=== PATIENT | female | born 1995 | race Caucasian/White ===

== ENCOUNTER 2018-01-30 01:27 | Emergency (ER) | payer OTHER ==
[~2018-01-30] VITALS: Ht 172.7 cm; Wt 86.2 kg
[2018-01-30 01:36] VITALS: BP_SYST 149
[2018-01-30 02:00] LABS: BILIRUBIN,URINE NEGATIVE (NEGATIVE); BLOOD, URINE 2+ (NEGATIVE); CLARITY/URINE CLEAR (CLEAR); COLOR,URINE YELLOW (YELLOW); GLUCOSE,URINE 3+ (NEGATIVE); KETONES,URINE NEGATIVE (NEGATIVE); LEUKOCYTE ESTERASE ,URINE NEGATIVE (NEGATIVE); NITRITE, URINE NEGATIVE (NEGATIVE); PH,URINE 7.5 (5.0-8.0); PROTEIN URINE 1+ (NEGATIVE)
[2018-01-30 02:09] LABS: BACTERIA,URINE MODERATE /HPF (None Seen); MUCUS,URINE None Seen /LPF (None Seen)
[2018-01-30 02:49] LABS: BASOPHILS # (AUTO) 0.2 K/uL (0.0-0.2); BASOPHILS % (AUTO) 1.7 % (0.0-2.0); EOSINOPHILS # (AUTO) 0.1 K/uL (0.0-0.4); EOSINOPHILS % (AUTO) 1.3 % (0.0-4.0); HEMATOCRIT 40.5 % (36-48); HEMOGLOBIN 13.6 g/dL (12.0-16.0); LYMPHOCYTES # (AUTO) 3.1 K/uL (1.0-5.5); LYMPHOCYTES % (AUTO) 29.4 % (20.5-51.5); MEAN CORPUSCULAR HEMOGLOBIN 26 pg (27-31); MEAN CORPUSCULAR HGB CONC 34 % (32-36); MEAN CORPUSCULAR VOLUME 79 fL (79.0-98.0); MONOCYTES # (AUTO) 0.6 K/uL (0.0-1.0); MONOCYTES % (AUTO) 5.5 % (1.7-9.3); NEUTROPHILS # (AUTO) 6.5 K/uL (1.8-7.7); NEUTROPHILS % (AUTO) 62.1 % (40.0-70.0); PLATELET COUNT (AUTO) 328 K/uL (130-430); RED BLOOD CELL COUNT(AUTO) 5.16 MIL/uL (4.2-6.2); RED CELL DISTRIBUTION WIDTH 12.1 % (9.0-15.0); WHITE BLOOD COUNT (AUTO) 10.5 K/uL (4.8-10.8)
[2018-01-30 02:51] LABS: CALCIUM 9.6 mg/dL (8.4-11.0); CREATININE 0.69 mg/dL (0.55-1.30); POTASSIUM 3.8 mmol/L (3.5-5.1)
[2018-01-30 02:55] LABS: PROTHROMBIN TIME 9.7 SECS (9.5-12.5)
[2018-01-30 02:57] LABS: ALBUMIN 3.8 g/dL (3.4-4.8); TOTAL BILIRUBIN 0.2 mg/dL (0.0-1.0)
[2018-01-30 03:15] VITALS: BP_SYST 134
== END 2018-01-30 03:15 | disposition home or self-care (01) ==
LOC: SED 01:27
DX: N39.0 Urinary tract infection, site not specified (principal); E11.9 Type 2 diabetes mellitus without complications; R03.0 Elevated blood-pressure reading, without diagnosis of hypertension
CPT/HCPCS: 36415; 80053; 81000-TC; 81025; 83036; 83690-TC; 85025; 85610-TC; 85730-TC; 87086; 99284

== ENCOUNTER 2018-06-12 00:29 | Emergency (ER) | payer OTHER ==
[~2018-06-12] VITALS: Ht 172.7 cm; Wt 84.4 kg
--- NOTE | 2018-06-12 00:32 | NUR ---
Patient to ER bed 7 to gown for evaluation. Side rails up.
[2018-06-12 00:35] VITALS: BP_SYST 149
--- NOTE | 2018-06-12 00:40 | NUR ---
Patient to ER C/O pelvic pressure and cramping since yesterday 1999. Patient was seen at OBGYN Dr Byrd, had positive IUP at 6 weeks gestation. Patient states LMP 03/03/18 . Denies discharge. AAOx4, unlabored breathing, no signs of acute distress.
--- NOTE | 2018-06-12 00:51 | NUR ---
ER MD Mac at bedside evaluating the patient
[2018-06-12] MEDS ORDERED: ACETAMINOPHEN 500 MG TABLET PO ONE (01:00)
[2018-06-12 01:07] LABS: BILIRUBIN,URINE NEGATIVE (NEGATIVE); BLOOD, URINE 2+ (NEGATIVE); CLARITY/URINE SL HAZY (CLEAR); COLOR,URINE YELLOW (YELLOW); GLUCOSE,URINE NEGATIVE (NEGATIVE); KETONES,URINE NEGATIVE (NEGATIVE); LEUKOCYTE ESTERASE ,URINE 3+ (NEGATIVE); NITRITE, URINE NEGATIVE (NEGATIVE); PROTEIN URINE TRACE (NEGATIVE); UROBILINOGEN,URINE 0.2 (0.2-1.0)
--- NOTE | 2018-06-12 01:07 | NUR ---
LAB at bedside for blood draw.Patient identified x 2
--- NOTE | 2018-06-12 01:20 | NUR ---
# 20 gauge angiocath placed to left ac. Use of asceptic technique. Opsite placed over site. Blood return noted. Blood for lab drawn from site. Flushed with 10 cc of normal saline. No evidence of infiltration noted. Patient tolerated well.
[2018-06-12 01:22] LABS: BACTERIA,URINE MODERATE /HPF (None Seen)
[2018-06-12 01:29] LABS: HEMATOCRIT 37.4 % (36-48); HEMOGLOBIN 12.6 g/dL (12.0-16.0); MEAN CORPUSCULAR HEMOGLOBIN 27 pg (27-31); MEAN CORPUSCULAR HGB CONC 34 % (32-36); MEAN CORPUSCULAR VOLUME 80 fL (79.0-98.0); PLATELET COUNT (AUTO) 287 K/uL (130-430); RED BLOOD CELL COUNT(AUTO) 4.68 MIL/uL (4.2-6.2); RED CELL DISTRIBUTION WIDTH 13.7 % (9.0-15.0); WHITE BLOOD COUNT (AUTO) 10.5 K/uL (4.8-10.8)
[2018-06-12] MEDS ORDERED: NACL 0.9% 1,000 ML IV ONE (01:30)
[2018-06-12] MEDS ORDERED: ONDANSETRON HCL 4 MG/2 ML VIAL IVP ONE (01:30)
[2018-06-12 01:36] LABS: CALCIUM 9.2 mg/dL (8.4-11.0); CREATININE 0.73 mg/dL (0.55-1.30); POTASSIUM 3.3 mmol/L (3.5-5.1)
[2018-06-12 01:47] LABS: ALBUMIN 3.7 g/dL (3.4-4.8); TOTAL BILIRUBIN 0.3 mg/dL (0.0-1.0)
--- NOTE | 2018-06-12 01:50 | NUR ---
ER MD Mac at bedside discussing tests results and discharge with patient
[2018-06-12 02:28] LABS: BASOPHILS % (MANUAL) 0 % (0-2); EOSINOPHILS % (MANUAL) 1 % (0-7); LYMPHOCYTES % (MANUAL) 29 % (20-46); MONOCYTES % (MANUAL) 6 % (0-11)
[2018-06-12 02:34] VITALS: BP_SYST 126
--- NOTE | 2018-06-12 02:34 | NUR ---
Patient given written and verbal discharge instructions and verbalizes understanding. ER MD Mac discussed with patient the results and treatment provided. Patient in stable condition. ID arm band removed. IV catheter removed intact and dressing applied, no active bleeding. Rx of zofran & macrobid given. Patient educated on pain management and to follow up with PMD. Pain Scale 0/10. Opportunity for questions provided and answered. Medication side effect fact sheet provided.
== END 2018-06-12 02:34 | disposition home or self-care (01) ==
LOC: SED 00:29
DX: O23.41 Unspecified infection of urinary tract in pregnancy, first trimester (principal); O99.280 Endocrine, nutritional and metabolic diseases complicating pregnancy, unspecified trimester; O26.811 Pregnancy related exhaustion and fatigue, first trimester; O26.891 Other specified pregnancy related conditions, first trimester; R11.0 Nausea; R03.0 Elevated blood-pressure reading, without diagnosis of hypertension; Z3A.01 Less than 8 weeks gestation of pregnancy
CPT/HCPCS: 36415; 80053; 81000; 81025; 84702; 85007; 85027; 87086; 96374; 99284; J2405; J7030

== ENCOUNTER 2018-10-13 19:05 | Observation (INO) | payer OTHER ==
[~2018-10-13] VITALS: Ht 170.2 cm; Wt 81.6 kg
[2018-10-13] MEDS ORDERED: PROMETHAZINE HCL 25 MG/ML AMP IM ONE (20:30)
[2018-10-13] MEDS ORDERED: MORPHINE SULFATE 10 MG/ML VIAL IM ONE (20:30)
[2018-10-13] MEDS ORDERED: ACETAMINOPHEN 500 MG TABLET ONE (22:45)
[2018-10-13] MEDS ORDERED: ACETAMINOPHEN 500 MG TABLET PO ONE (22:45)
== END 2018-10-13 23:20 | disposition home or self-care (01) ==
LOC: SPU 19:05
PROVIDERS: ADMIT Specialist; ATTEND Specialist
DX: O26.852 Spotting complicating pregnancy, second trimester (principal); O26.893 Other specified pregnancy related conditions, third trimester; R10.9 Unspecified abdominal pain; Z3A.24 24 weeks gestation of pregnancy
CPT/HCPCS: 81002; G0378; J2550; J2270

== ENCOUNTER 2018-12-15 12:24 | Inpatient (IN) | payer OTHER ==
[~2018-12-15] VITALS: Ht 170.2 cm; Wt 81.2 kg
[2018-12-15] MEDS: LR 1,000 ML IV SCH ×2 (10:30→18:07)
[2018-12-15] MEDS ORDERED: BETAMET ACET/BETAMET NA PH 30 MG/5 ML VIAL IM ONE (13:45)
[2018-12-15 13:51] LABS: CALCIUM 9.1 mg/dL (8.4-11.0); CREATININE 0.5 mg/dL (0.55-1.30); POTASSIUM 3.7 mmol/L (3.5-5.1)
[2018-12-15 13:56] LABS: ALBUMIN 2.6 g/dL (3.4-4.8); TOTAL BILIRUBIN 0.2 mg/dL (0.0-1.0)
[2018-12-15 13:58] LABS: BASOPHILS # (AUTO) 0.1 K/uL (0.0-0.2); BASOPHILS % (AUTO) 0.6 % (0.0-2.0); EOSINOPHILS # (AUTO) 0.1 K/uL (0.0-0.4); EOSINOPHILS % (AUTO) 0.5 % (0.0-4.0); HEMATOCRIT 35.8 % (36-48); HEMOGLOBIN 11.9 g/dL (12.0-16.0); LYMPHOCYTES # (AUTO) 1.6 K/uL (1.0-5.5); LYMPHOCYTES % (AUTO) 14.4 % (20.5-51.5); MEAN CORPUSCULAR HEMOGLOBIN 27 pg (27-31); MEAN CORPUSCULAR HGB CONC 33 % (32-36); MEAN CORPUSCULAR VOLUME 81 fL (79.0-98.0); MONOCYTES # (AUTO) 0.4 K/uL (0.0-1.0); MONOCYTES % (AUTO) 3.4 % (1.7-9.3); NEUTROPHILS # (AUTO) 9.2 K/uL (1.8-7.7); NEUTROPHILS % (AUTO) 81.1 % (40.0-70.0); PLATELET COUNT (AUTO) 251 K/uL (130-430); RED BLOOD CELL COUNT(AUTO) 4.41 MIL/uL (4.2-6.2); RED CELL DISTRIBUTION WIDTH 12.6 % (9.0-15.0); WHITE BLOOD COUNT (AUTO) 11.4 K/uL (4.8-10.8)
[2018-12-16] MEDS ORDERED: BETAMET ACET/BETAMET NA PH 30 MG/5 ML VIAL IM ONE (14:00)
[2018-12-17] MEDS: LR 1,000 ML IV SCH ×2 (03:30→20:00)
[2018-12-17] MEDS ORDERED: OXYTOCIN/0.9 % SODIUM CHLORIDE 1,000 ML IV ONE (15:11)
[2018-12-17] MEDS ORDERED: SENNOSIDES/DOCUSATE SODIUM 1 TAB TABLET(SENOKOT-S) PO PRN (15:15)
[2018-12-17] MEDS ORDERED: MEASLES,MUMPS&RUBELLA VACC/PF 12500 UNIT/0.5 ML VIAL SUBQ PRN (15:15)
[2018-12-17] MEDS ORDERED: DIPH-TET-PERTUS Vaccine 0.5 ML VIAL (ADACEL) I.M. PRN (15:15)
[2018-12-17] MEDS ORDERED: LANOLIN 7 GM OINT. TP PRN (15:15)
[2018-12-17] MEDS ORDERED: WITCH HAZEL LEAF 1 MED.PAD MED.PAD TP PRN (15:15)
[2018-12-17] MEDS ORDERED: OXYCODONE/ACETAMINOPHEN 5-325 TABLET PO PRN ×2 (15:15)
[2018-12-17] MEDS ORDERED: DOCUSATE SODIUM 100 MG CAPSULE PO PRN (15:15)
[2018-12-17] MEDS ORDERED: HYDROCORTISONE 0.5%, 28.35 GM TOPICAL CREAM TP PRN (15:15)
[2018-12-17] MEDS ORDERED: RHO(D) IMMUNE GLOBULIN/MALTOSE 1500 UNITS/1.3 ML (WINHRO) IM PRN (15:15)
[2018-12-17] MEDS ORDERED: HYDROcodone/ACETAMIN 5-325 MG TAB (NORCO/ VICODIN) PO PRN (15:15)
[2018-12-17] MEDS ORDERED: DERMOPLAST SPRAY TP PRN (15:15)
[2018-12-17] MEDS ORDERED: ANUSOL 1 EA SUPP.RECT (PREPARATION H) RC PRN (15:15)
[2018-12-17] MEDS ORDERED: METHYLERGONOVINE MALEATE 0.2 MG TABLET PO PRN (15:15)
[2018-12-17] MEDS ORDERED: IBUPROFEN 600 MG TABLET PO SCH (18:00)
[2018-12-17] MEDS ORDERED: TEMAZEPAM 15 MG CAPSULE PO PRN (21:00)
[2018-12-18] MEDS ORDERED: ACETAMINOPHEN 325 MG TABLET PO PRN (23:00)
[2018-12-19] MEDS: LR 1,000 ML IV SCH ×3 (02:00→11:23)
[2018-12-20] MEDS: LR 1,000 ML IV SCH ×3 (04:30→21:41)
[2018-12-21] MEDS: LR 1,000 ML IV SCH ×4 (05:53→22:25)
[2018-12-22] MEDS: LR 1,000 ML IV SCH (06:21)
[2018-12-23] MEDS: LR 1,000 ML IV SCH (02:00)
[2018-12-24] MEDS: LR 1,000 ML IV SCH ×2 (03:00→21:35)
[2018-12-25] MEDS: LR 1,000 ML IV SCH (06:08)
[2018-12-27] MEDS: LR 1,000 ML IV SCH (07:15)
[2018-12-28] MEDS: LR 1,000 ML IV SCH ×2 (11:45→13:15)
[2018-12-29] MEDS: LR 1,000 ML IV SCH ×2 (11:45→22:00)
[2018-12-30] MEDS: LR 1,000 ML IV SCH (06:00)
[2018-12-31] MEDS: LR 1,000 ML IV SCH ×3 (02:30→23:55)
[2019-01-01] MEDS: LR 1,000 ML IV SCH (04:23)
[2019-01-02] MEDS ORDERED: MAG-AL HYDROX/SIMETH 30 ML UDC PO PRN (14:15)
[2019-01-02] MEDS ORDERED: FAMOTIDINE 20 MG TABLET PO ONE (14:30)
[2019-01-03] MEDS ORDERED: FAMOTIDINE 20 MG TABLET PO SCH (09:00)
[2019-01-04] MEDS: LR 1,000 ML IV SCH (07:55)
[2019-01-05] MEDS: LR 1,000 ML IV SCH (03:00)
== END 2019-01-05 09:10 | disposition home or self-care (01) | DRG 833 ==
LOC: UNDOADMOB 12:24 → SPU 12:24 → OBSVTOIN 12-16 11:12 → SPU 12-17 18:55
PROVIDERS: ADMIT Specialist; ATTEND Specialist
DX: O41.03X0 Oligohydramnios, third trimester, not applicable or unspecified (principal); O32.1XX0 Maternal care for breech presentation, not applicable or unspecified; Z3A.34 34 weeks gestation of pregnancy
CPT/HCPCS: 36415; 76805-TC; 76815; 80053; 81002-TC; 85025; 87081; G0378; J0702; J7120

== ENCOUNTER 2019-01-09 22:23 | Inpatient (IN) | payer OTHER ==
[~2019-01-09] VITALS: Ht 170.2 cm; Wt 83.9 kg
[2019-01-09] MEDS ORDERED: DINOPROSTONE 10 MG SUPP VG ONE (23:00)
[2019-01-09] MEDS ORDERED: NALBUPHINE HCL 10 MG/ML AMP IVP PRN (23:00)
[2019-01-09 23:26] LABS: HEMATOCRIT 37.2 % (36-48); HEMOGLOBIN 12.7 g/dL (12.0-16.0); MEAN CORPUSCULAR HEMOGLOBIN 27 pg (27-31); MEAN CORPUSCULAR HGB CONC 34 % (32-36); MEAN CORPUSCULAR VOLUME 80 fL (79.0-98.0); RED BLOOD CELL COUNT(AUTO) 4.63 MIL/uL (4.2-6.2); WHITE BLOOD COUNT (AUTO) 8.9 K/uL (4.8-10.8)
[2019-01-09 23:27] LABS: BASOPHILS % (AUTO) 0.4 % (0.0-2.0); EOSINOPHILS % (AUTO) 0.4 % (0.0-4.0); LYMPHOCYTES # (AUTO) 1.8 K/uL (1.0-5.5); LYMPHOCYTES % (AUTO) 20.4 % (20.5-51.5); MONOCYTES # (AUTO) 0.4 K/uL (0.0-1.0); MONOCYTES % (AUTO) 4.8 % (1.7-9.3); NEUTROPHILS # (AUTO) 6.6 K/uL (1.8-7.7); PLATELET COUNT (AUTO) 285 K/uL (130-430); RED CELL DISTRIBUTION WIDTH 13.7 % (9.0-15.0)
[2019-01-10] MEDS: LR 1,000 ML IV SCH (01:09)
[2019-01-10 03:52] VITALS: BP_SYST 141
[2019-01-10] MEDS ORDERED: AMPICILLIN SODIUM 2 GM in NS 100 ML IV ONE (04:00)
[2019-01-10] MEDS: AMPICILLIN SODIUM 1 GM in NS 50 ML IV SCH ×2 (05:10→21:07)
[2019-01-10] MEDS: OXYTOCIN/0.9 % SODIUM CHLORIDE 1,000 ML IV SCH (14:30)
[2019-01-10 16:09] LABS: BILIRUBIN,URINE NEGATIVE (NEGATIVE); BLOOD, URINE NEGATIVE (NEGATIVE); CLARITY/URINE CLEAR (CLEAR); COLOR,URINE YELLOW (YELLOW); GLUCOSE,URINE NEGATIVE (NEGATIVE); KETONES,URINE 1+ (NEGATIVE); LEUKOCYTE ESTERASE ,URINE NEGATIVE (NEGATIVE); NITRITE, URINE NEGATIVE (NEGATIVE); PROTEIN URINE NEGATIVE (NEGATIVE); UROBILINOGEN,URINE 0.2 (0.2-1.0)
[2019-01-10 16:50] LABS: BACTERIA,URINE FEW /HPF (None Seen); FINE GRANULAR CASTS,URINE 0-10 /LPF (None Seen); MUCUS,URINE None Seen /LPF (None Seen); RBC,URINE 0-3 /HPF (0-3); WBC,URINE 0-3 /HPF (0-3)
[2019-01-11] MEDS: LR 1,000 ML IV SCH (01:14)
[2019-01-11] MEDS: AMPICILLIN SODIUM 1 GM in NS 50 ML IV SCH ×2 (01:14→10:09)
[2019-01-11] MEDS: OXYTOCIN/0.9 % SODIUM CHLORIDE 1,000 ML IV SCH (09:27)
[2019-01-11] MEDS ORDERED: ROPIVACAINE HCL/PF 0.2% 100 ML ONE (09:53)
[2019-01-11] MEDS ORDERED: fentaNYL CITRATE/PF 100 MCG/2 ML AMP ONE (09:53)
[2019-01-11] MEDS ORDERED: LR 500 ML IV ONE (10:29)
[2019-01-11] MEDS ORDERED: FENT2mCg/mL-ROPIVA0.2%/NS EPID 150 ML EP SCH (10:30)
[2019-01-11] MEDS ORDERED: ONDANSETRON HCL 4 MG/2 ML VIAL IVP PRN (17:00)
[2019-01-11] MEDS ORDERED: fentaNYL CITRATE/PF 100 MCG/2 ML AMP IVP PRN ×2 (17:00)
[2019-01-11] MEDS ORDERED: OXYTOCIN/0.9 % SODIUM CHLORIDE 1,000 ML IV ONE (17:26)
[2019-01-11] MEDS ORDERED: OXYTOCIN/0.9 % SODIUM CHLORIDE 1,000 ML IV SCH (17:26)
[2019-01-11 17:28] VITALS: BP_SYST 117
[2019-01-11] MEDS ORDERED: HYDROcodone/ACETAMIN 5-325 MG TAB (NORCO/ VICODIN) PO PRN (17:30)
[2019-01-11] MEDS ORDERED: HYDROCORTISONE 0.5%, 28.35 GM TOPICAL CREAM TP PRN (17:30)
[2019-01-11] MEDS ORDERED: SENNOSIDES/DOCUSATE SODIUM 1 TAB TABLET(SENOKOT-S) PO PRN (17:30)
[2019-01-11] MEDS ORDERED: DOCUSATE SODIUM 100 MG CAPSULE PO PRN (17:30)
[2019-01-11] MEDS ORDERED: WITCH HAZEL LEAF 1 MED.PAD MED.PAD TP PRN (17:30)
[2019-01-11] MEDS ORDERED: LANOLIN 7 GM OINT. TP PRN (17:30)
[2019-01-11] MEDS ORDERED: OXYCODONE/ACETAMINOPHEN 5-325 TABLET PO PRN ×2 (17:30)
[2019-01-11] MEDS ORDERED: DERMOPLAST SPRAY TP PRN (17:30)
[2019-01-11] MEDS ORDERED: ANUSOL 1 EA SUPP.RECT (PREPARATION H) RC PRN (17:30)
[2019-01-11] MEDS ORDERED: TEMAZEPAM 15 MG CAPSULE PO PRN (21:00)
[2019-01-12] MEDS ORDERED: OXYTOCIN 10 UNIT/ML VIAL ONE (01:29)
[2019-01-12] MEDS ORDERED: METHYLERGONOVINE MALEATE 0.2 MG/ML AMP ONE (01:30)
[2019-01-12 08:31] LABS: HEMATOCRIT 25.4 % (36-48); LYMPHOCYTES % (AUTO) 19.9 % (20.5-51.5); MEAN CORPUSCULAR HEMOGLOBIN 28 pg (27-31); MEAN CORPUSCULAR HGB CONC 34 % (32-36); MEAN CORPUSCULAR VOLUME 81 fL (79.0-98.0); NEUTROPHILS % (AUTO) 74.9 % (40.0-70.0); PLATELET COUNT (AUTO) 196 K/uL (130-430); RED BLOOD CELL COUNT(AUTO) 3.13 MIL/uL (4.2-6.2); WHITE BLOOD COUNT (AUTO) 10.6 K/uL (4.8-10.8)
[2019-01-12 08:32] LABS: BASOPHILS % (AUTO) 0.3 % (0.0-2.0); EOSINOPHILS % (AUTO) 0.4 % (0.0-4.0); HEMOGLOBIN 8.7 g/dL (12.0-16.0); LYMPHOCYTES # (AUTO) 1.9 K/uL (1.0-5.5); MONOCYTES # (AUTO) 0.7 K/uL (0.0-1.0); MONOCYTES % (AUTO) 6.5 % (1.7-9.3)
[2019-01-13] MEDS ORDERED: WATER FOR IRRIGATION,STERILE 1,000 ML IRRIG.SOLN IR ONE (16:15)
[2019-01-13] MEDS ORDERED: METHYLERGONOVINE MALEATE 0.2 MG/ML AMP IM ONE (16:15)
[2019-01-13] MEDS ORDERED: MIDAZOLAM HCL 5 MG/5 ML VIAL IVP ONE (16:15)
[2019-01-13] MEDS ORDERED: LR 1,000 ML IV.SOLN IV ONE (16:15)
== END 2019-01-13 11:00 | disposition home or self-care (01) | DRG 768 ==
LOC: SPU 22:23
PROVIDERS: ADMIT Specialist; ATTEND Specialist
PROC: 0DQR0ZZ Repair Anal Sphincter, Open Approach (ICD-10-PCS; 2019-01-11)
PROC: 10D17ZZ Extraction of Products of Conception, Retained, Via Natural or Artificial Opening (ICD-10-PCS; 2019-01-11)
PROC: 3E033VJ Introduction of Other Hormone into Peripheral Vein, Percutaneous Approach (ICD-10-PCS; 2019-01-11)
PROC: 3E0P7VZ Introduction of Hormone into Female Reproductive, Via Natural or Artificial Opening (ICD-10-PCS; 2019-01-11)
PROC: 3E0R3BZ Introduction of Anesthetic Agent into Spinal Canal, Percutaneous Approach (ICD-10-PCS; 2019-01-11)
PROC: 00HU33Z Insertion of Infusion Device into Spinal Canal, Percutaneous Approach (ICD-10-PCS; 2019-01-11)
PROC: 10E0XZZ Delivery of Products of Conception, External Approach (ICD-10-PCS; principal; 2019-01-11 16:00)
DX: O41.03X0 Oligohydramnios, third trimester, not applicable or unspecified (principal); Z37.0 Single live birth; O44.03 Complete placenta previa NOS or without hemorrhage, third trimester; O71.4 Obstetric high vaginal laceration alone; O72.2 Delayed and secondary postpartum hemorrhage; O69.81X0 Labor and delivery complicated by cord around neck, without compression, not applicable or unspecified; Z3A.37 37 weeks gestation of pregnancy
CPT/HCPCS: 36415; 81000-TC; 81002-TC; 85025; 86592; 86886; 86900; 86901; 88307; 94760; J0290; J2210; J2250; J2590; J2795; J3010; J7120

== ENCOUNTER 2022-09-15 16:14 | Emergency (ER) | payer OTHER ==
[~2022-09-15] VITALS: Ht 170.2 cm; Wt 78.0 kg
[2022-09-15 16:23] VITALS: BP_SYST 154
[2022-09-15 17:03] LABS: BASOPHILS % (AUTO) 0.5 % (0.0-2.0); EOSINOPHILS # (AUTO) 0.1 K/uL (0.0-0.4); EOSINOPHILS % (AUTO) 0.7 % (0.0-4.0); HEMATOCRIT 39.4 % (36-48); HEMOGLOBIN 13.7 g/dL (12.0-16.0); LYMPHOCYTES # (AUTO) 2.2 K/uL (1.0-5.5); LYMPHOCYTES % (AUTO) 25.8 % (20.5-51.5); MEAN CORPUSCULAR HEMOGLOBIN 26 pg (27-31); MEAN CORPUSCULAR HGB CONC 35 % (32-36); MEAN CORPUSCULAR VOLUME 76 fL (79.0-98.0); MONOCYTES # (AUTO) 0.5 K/uL (0.0-1.0); MONOCYTES % (AUTO) 5.9 % (1.7-9.3); NEUTROPHILS # (AUTO) 5.6 K/uL (1.8-7.7); NEUTROPHILS % (AUTO) 67.1 % (40.0-70.0); PLATELET COUNT (AUTO) 262 K/uL (130-430); RED BLOOD CELL COUNT(AUTO) 5.21 MIL/uL (4.2-6.2); RED CELL DISTRIBUTION WIDTH 13.3 % (9.0-15.0); WHITE BLOOD COUNT (AUTO) 8.4 K/uL (4.8-10.8)
[2022-09-15 17:04] LABS: BILIRUBIN,URINE NEGATIVE (NEGATIVE); BLOOD, URINE 3+ (NEGATIVE); CLARITY/URINE CLEAR (CLEAR); GLUCOSE,URINE 3+ (NEGATIVE); KETONES,URINE NEGATIVE (NEGATIVE); LEUKOCYTE ESTERASE ,URINE NEGATIVE (NEGATIVE); NITRITE, URINE NEGATIVE (NEGATIVE); PROTEIN URINE NEGATIVE (NEGATIVE); UROBILINOGEN,URINE 0.2 (0.2-1.0)
[2022-09-15 17:17] LABS: COLOR,URINE STRAW (YELLOW)
[2022-09-15 17:33] LABS: BACTERIA,URINE RARE /HPF (None Seen); WBC,URINE 0-3 /HPF (0-3)
[2022-09-15 18:11] VITALS: BP_SYST 132
== END 2022-09-15 18:11 | disposition home or self-care (01) ==
LOC: SED 16:14
DX: O20.0 Threatened abortion (principal); O20.9 Hemorrhage in early pregnancy, unspecified; Z3A.08 8 weeks gestation of pregnancy; Z79.899 Other long term (current) drug therapy
CPT/HCPCS: 36415; 76856-TC; 81000; 81025; 84702; 85025; 99284

== ENCOUNTER 2023-02-26 09:09 | Emergency (ER) | payer OTHER ==
[~2023-02-26] VITALS: Ht 172.7 cm; Wt 86.2 kg
[2023-02-26 09:11] VITALS: BP_SYST 139
--- NOTE | 2023-02-26 09:20 | NUR ---
ER at bedside examining patient.
--- NOTE | 2023-02-26 09:24 | NUR ---
Pt presents to the ER with and child, chief complaint vaginal bleeding for past 3 hours, clotting and continuous flow. Pt is groaning with 10/10 pelvic pain. Pt is aaox3 NKA, No Past med hx, Pt states taking vitamins Pt has been seen by OBGYN MD francisco and transfering to MD Mae.
--- NOTE | 2023-02-26 09:25 | NUR ---
Community Outreach Worker bedside drawing blood for collection.
--- NOTE | 2023-02-26 09:28 | NUR ---
Pt states 11 weeks . with OBEVANN Lamberty oversight.
--- NOTE | 2023-02-26 09:37 | NUR ---
Pt to ultrasound with meter/relay technician via wheelchair.
[2023-02-26 09:46] LABS: BASOPHILS % (AUTO) 0.4 % (0.0-2.0); EOSINOPHILS # (AUTO) 0.1 K/uL (0.0-0.4); EOSINOPHILS % (AUTO) 0.9 % (0.0-4.0); HEMATOCRIT 34.8 % (36-48); HEMOGLOBIN 11.2 g/dL (12.0-16.0); LYMPHOCYTES # (AUTO) 1.7 K/uL (1.0-5.5); LYMPHOCYTES % (AUTO) 21.9 % (20.5-51.5); MEAN CORPUSCULAR HEMOGLOBIN 22 pg (27-31); MEAN CORPUSCULAR HGB CONC 32 % (32-36); MEAN CORPUSCULAR VOLUME 68 fL (79.0-98.0); MONOCYTES # (AUTO) 0.3 K/uL (0.0-1.0); MONOCYTES % (AUTO) 4.5 % (1.7-9.3); NEUTROPHILS # (AUTO) 5.5 K/uL (1.8-7.7); NEUTROPHILS % (AUTO) 72.3 % (40.0-70.0); PLATELET COUNT (AUTO) 294 K/uL (130-430); RED BLOOD CELL COUNT(AUTO) 5.09 MIL/uL (4.2-6.2); RED CELL DISTRIBUTION WIDTH 15.6 % (9.0-15.0)
[2023-02-26 09:48] LABS: WHITE BLOOD COUNT (AUTO) 7.6 K/uL (4.8-10.8)
[2023-02-26 10:08] LABS: PROTHROMBIN TIME 9.9 SECS (9.5-12.5)
[2023-02-26] MEDS ORDERED: ONDANSETRON 4 MG ODT TAB PO ONE ×2 (10:15→10:30)
[2023-02-26] MEDS ORDERED: TRAM50TA2 PO (10:22)
[2023-02-26] MEDS ORDERED: MISO200T PO (10:22)
[2023-02-26] MEDS ORDERED: HYDROcodone/ACETAMIN 10-325 MG TAB PO ONE (10:30)
--- NOTE | 2023-02-26 12:43 | NUR ---
Patient given written and verbal discharge instructions and verbalizes understanding. ER MD discussed with patient the results and treatment provided. Patient in stable condition. ID arm band removed. Rx of cytotex given. Patient educated on pain management and to follow up with PMD. Opportunity for questions provided and answered. Medication side effect fact sheet provided.
[2023-02-26 13:23] VITALS: BP_SYST 150
== END 2023-02-26 12:43 | disposition home or self-care (01) ==
LOC: SED 09:09
DX: O03.9 Complete or unspecified spontaneous abortion without complication (principal); O26.891 Other specified pregnancy related conditions, first trimester; Z3A.11 11 weeks gestation of pregnancy; Z79.899 Other long term (current) drug therapy
CPT/HCPCS: 99284; 84702; 85025; 85610; 85730; 86900; 86901; 36415; 76802; Q0162